=== PATIENT | female | born 1985 | race African-American/Black ===

== ENCOUNTER 2016-11-04 19:55 | Emergency (ER) | payer SELFPAY | END 2016-11-04 21:22 | disposition home or self-care (01) | LOC: ER1 19:55 | DX: S83.91XA Sprain of unspecified site of right knee, initial encounter (principal); E11.9 Type 2 diabetes mellitus without complications; I10 Essential (primary) hypertension; E07.9 Disorder of thyroid, unspecified; Z79.899 Other long term (current) drug therapy; X50.1XXA Overexertion from prolonged static or awkward postures, initial encounter; Y92.009 Unspecified place in unspecified non-institutional (private) residence as the place of occurrence of the external cause | CPT/HCPCS: 73564; 96372; 99283; J1885 ==